=== PATIENT | female | born 1960 | race Caucasian/White ===

== ENCOUNTER → 2024-01-02 10:06 | Outpatient (REF) | payer MEDICARE, OTHER, SELFPAY | LOC: MRI 10:06 | PROVIDERS: ATTENDING PHYSICIAN Student in an Organized Health Care Education/Training Program; FAMILY PHYSICIAN Internal Medicine | DX: G35 Multiple sclerosis (principal) | CPT/HCPCS: 70551; 72141 ==

== ENCOUNTER → 2024-04-09 13:06 | Outpatient (REF) | payer MEDICARE, OTHER, SELFPAY ==
[2024-04-09 16:25] LABS: TSH Reflex To Free T4 2.13 uIU/ml (0.47-4.68)
[2024-04-09 16:44] LABS: Vitamin B12 530 pg/ml (239-931)
[2024-04-10 10:41] LABS: Syphilis/T. pallidum Ab Reflex Negative (Negative)
== END ==
LOC: REG 13:06
PROVIDERS: ATTENDING PHYSICIAN Psychiatry & Neurology Neurology
DX: G35 Multiple sclerosis (principal); D51.0 Vitamin B12 deficiency anemia due to intrinsic factor deficiency
CPT/HCPCS: 36415; 82607; 84443; 84446; 86255; 86430; 86618; 86780

== ENCOUNTER 2024-09-10 12:18 | Emergency (ER) | payer MEDICARE, OTHER, SELFPAY ==
[2024-09-10 12:31] VITALS: BP 107/70
[2024-09-10 13:31] VITALS: BMI 35.3
[2024-09-10 14:00] VITALS: BP 104/62
--- NOTE | 2024-09-10 14:02 | ED.GENMED ---
History of Present Illness
General
Chief Complaint: Chest Pain
Source: patient
Exam Limitations: none
Time Seen by Provider: 09/10/24 13:28
Nursing documentation reviewed up to this point in time: agreed with
History of Present Illness
History of Present Illness:
64-year-old female past medical history of MS, presenting to the emergency department today with concerns of left-sided chest discomfort. She describes it is mainly in the breast. Described as achy no associated symptoms. No nausea vomiting
shortness of breath diaphoresis.
Past History
Past History
ED Past Medical History: Other (Question neurofibromatosis, MS)
Social History
Tobacco: Non-smoker
Alcohol: None
Drug: None
Personal: Single
Living: prison
Employment: Not employed
Family History
Family History: Other (Noncontributory)
Review of Systems
Review of Systems
Allergies reviewed?: Yes
All Other Systems: ROS reviewed and negative except as documented in HPI and ROS
Phy Exam
Physical Exam
Physical Exam:
GENERAL: Alert , in no apparent distress
EYE: pupils equal and reactive
NECK: Supple, no significant adenopathy.
ENT: o/p clr, mmm.
CARDIAC: Regular rate and rhythm .
LUNGS: Clear breath sounds bilaterally, no acute respiratory distress, no wheezes/rales/rhonchi
ABDOMEN: Soft, without focal tenderness, no r/g, no cvat
NEUROLOGICAL: Alert and oriented, no focal neuro deficits
SKIN: Warm and dry, skin intact.
MUSCULOSKELETAL: No edema, well perfused.
PSYCH: Normal and appropriate interaction.
Scores
Heart Score for Chest Pain Patients
STEMI patient?: No
History: Slightly or Non-Suspicious
ECG: Normal
Age: >45 - <65 years
Risk Factors: 1 or 2 Risk Factors
Troponin: </= Normal Limit
Heart Score for Chest Pain Patients: 2
Heart Score Risk: 2.5% MACE over next 6 weeks
Course
Orders/Labs/Results
Orders:
Orders
09/10/24 12:19
ECG [Electrocardiogram (*1)] Urgent
Reason for Study: Chest Pain
EKG- Treatment ONCE
09/10/24 13:53
CR Chest - 2 Views Urgent
Comment:
Reason For Exam: left chest pain
09/10/24 14:15
Complete Blood Count/With Diff Urgent
Comprehensive Metabolic Panel Urgent
Troponin I Urgent
Abnormal Lab Results
09/10/24
14:15
MCHC 32.8 L g/dL
(33.0-37.0)
Abs Immat Gran (auto) 0.1 H 10^3/uL
(0-0.05)
Immature Gran % 1.8 H %
(0-0.5)
09/10/24 14:15
09/10/24 14:15
Vital Signs
Initial and Last Documented VS:
Initial Vital Signs
Temp Pulse Resp BP Pulse Ox
98 F 66 16 107/70 98
09/10/24 12:31 09/10/24 12:31 09/10/24 12:31 09/10/24 12:31 09/10/24 12:31
Last Documented Vital Signs
Temp Pulse Resp BP Pulse Ox
98 F 68 19 106/66 87
09/10/24 12:31 09/10/24 15:17 09/10/24 15:17 09/10/24 16:00 09/10/24 15:52
MDM/Problems Addressed
MDM/Problems Addressed:
64-year-old female presenting to the emergency department today with concerns of left-sided breast discomfort intermittently over the past few weeks. Denies any redness or warmth no systemic symptoms no shortness of breath nausea vomiting or
diaphoresis. Symptoms are reproducible on examination to the left breast but no overlying redness no obvious masses. No evidence of infection. EKG without emergent findings. Patient no distress workup. Normal no emergent findings patient's
symptoms seem to be isolated to the breast itself. Plan for close outpatient follow-up for further assessment of this. Return precautions given.
*Critical Care Note
Total Time (30-74mins, 75-104mins- exclusive of procedures): Not Applicable
ED Attending Note
-
Portions of this chart may have been created with voice recognition software.� Occasional wrong word or��sound alike� substitutions may have occurred due to the inherent limitations of voice recognition software.
Discharge Plan
Departure
Patient Disposition: Home (Routine Discharge)
Date of Disposition: 09/10/24
Time of Disposition: 16:05
Patient with high blood pressure during this ER visit?: No
Condition: Good
Covid-19: Not Applicable
Discharge Problem:
Breast pain
Prescriptions:
No Action
polyethylene glycol 3350 17 gram Powder In Packet
17 g PO BID
Theragen Tablet
1 tab PO DAILY
divalproex 500 mg Tablet,Delayed Release (Dr/Ec)
500 mg PO BID
magnesium hydroxide [Milk of Magnesia] 400 mg/5 mL Suspension
30 ml PO [id number] PRN (Reason: NO BM IN 3 DAYS)
meclizine 25 mg Tablet
50 mg PO DAILY
bisacodyl 10 mg Suppository
10 mg VT DAILYPRN PRN (Reason: IF MOM NOT EFFECTIVE AFTER 24 HRS)
Premarin 0.625 mg/gram Cream
0.58560 mg VAGINAL MOWEFR
Patient Comments:
09/10/24: at bedtime
Fleet Enema 19-7 gram/118 mL Enema
118 ml VT DAILYPRN PRN (Reason: if bisacodyl not effective after 24 hrs)
docusate sodium 100 mg Capsule
100 mg PO TID
olanzapine 15 mg Tablet
15 mg PO HS
diazepam 5 mg Tablet
5 mg PO DAILY
pregabalin 75 mg Capsule
75 mg PO BID
melatonin 5 mg Tablet
5 mg PO HS
Biotene Moisturizing Mouth [place],Non-Aerosol
3 spray MUCOUS MEMBRANE TID
cholecalciferol (vitamin D3) 125 mcg (5,000 unit) Tablet
125 mcg PO DAILY
linaclotide 290 mcg Capsule
290 mcg PO DAILY
glatiramer 40 mg/mL Syringe
40 mg SC TUTHSA
Moisture Barrier Skin ointment
1 appful topical TID
Patient Comments:
09/10/24: APPLY TO SACRUM
sennosides [senna] 8.6 mg Tablet
8.6 mg PO TID
acetaminophen 325 mg Tablet
650 mg PO Q4HPRN PRN (Reason: MILD PAIN)
acetaminophen 325 mg Tablet
650 mg PO Q6HPRN PRN (Reason: TEMP GREATER THAN 100)
tizanidine 2 mg Tablet
2 mg PO [id number] PRN (Reason: MUSCLE SPASM)
carboxymethylcellulose sodium [Refresh Tears] 0.5 % Drops
1 drp BOTH EYES BID
Replens Gel
1 ea VAGINAL HS
atorvastatin 40 mg Tablet
40 mg PO HS
aspirin 81 mg Tablet,Chewable
81 mg PO DAILY
meclizine 25 mg Tablet
25 mg PO BID
omega 4-fsa-adr-fish oil [Fish Oil] 1,000 (120-180) mg Capsule
1 cap PO DAILY
Referrals:
Darlyn Ridley MD [Active] - Follow up in 5-7 days
Cayetano Irizarry MD [Family Provider] -
Activity Restrictions/Additional Instructions:
You came to the emergency department today with concerns of breast discomfort. Please follow closely as an outpatient for further assessment of this. Return for any worsening, new or concerning symptoms.
Interventions
Interventions:
*Risk Screen - Suicide Last Done: 09/10/24 12:31
*Neglect/Abuse Screening Last Done: 09/10/24 12:31
ED- Fall Risk Assessment Last Done: 09/10/24 13:33
*ED COVID-19 Vaccine History Last Done: 09/10/24 13:32
ED- Cardiac Assessment Last Done: 09/10/24 13:33
Discharge Date and Time
Print Language: [place]IZ[place]
[2024-09-10 14:23] LABS: % Basophils 0.7 % (0-2); % Eosinophils 0.7 % (0-6); % Immature Granulocytes 1.8 % (0-0.5); % Lymphocytes 28.7 % (20.5-51.1); % Monocytes 7.5 % (1.7-9.3); % Neutrophils 60.6 % (42.2-75.2); Absolute Basophils 0.1 10^3/uL (0-0.2); Absolute Eosinophils 0.1 10^3/uL (0-0.7); Absolute Immature Granulocytes 0.1 10^3/uL (0-0.05); Absolute Monocytes 0.5 10^3/uL (0.1-0.6); Absolute Neutrophils 4.3 10^3/uL (1.4-6.5); Hematocrit 40.2 % (37.0-47.0); Hemoglobin 13.2 g/dL (12.0-16.0); Mean Corp Hgb Conc. 32.8 g/dL (33.0-37.0); Mean Corpuscular Hgb 27.7 pg (27.0-31.0); Mean Corpuscular Volume 84.5 fL (81.0-99.0); Mean Platelet Volume 9.4 fL (7.4-10.4); Nucleated Red Blood Cells % 0 %; Platelet Count 204 10^3/uL (130-400); Red Blood Cell Count 4.76 10^6/uL (4.20-5.40); Red Cell Dist. Width 14.1 % (11.5-14.5); White Blood Cell Count 7.1 10^3/uL (4.8-10.8)
[2024-09-10 14:35] LABS: ALT (SGPT) 29 U/L (0-35); AST (SGOT) 24 U/L (14-36); Albumin 3.9 g/dl (3.5-5.0); Alkaline Phosphatase 66 U/L (38-126); Blood Urea Nitrogen 10 mg/dl (7-17); Calcium 9.3 mg/dl (8.4-10.2); Carbon Dioxide 28 mmol/L (22-30); Chloride 104 mmol/L (98-107); Estimated Creatinine Clearance 90 ml/min; Glucose 84 mg/dl (70-99); Potassium 4.3 mmol/L (3.5-5.1); Sodium 140 mmol/L (135-145); Total Bilirubin 0.7 mg/dl (0.2-1.3); Total Protein 6.6 g/dl (6.3-8.2); eGFR > 60.00
[2024-09-10 14:46] LABS: Troponin I < 0.012 ng/ml
[2024-09-10 15:17] VITALS: BP 126/106
[2024-09-10 16:00] VITALS: BP 106/66
[2024-09-10 18:47] VITALS: BP 123/78
== END 2024-09-10 18:55 | disposition home or self-care (01) ==
LOC: EMR 12:18
PROVIDERS: Physician Assistant; EMERGENCY PHYSICIAN Student in an Organized Health Care Education/Training Program; FAMILY PHYSICIAN Internal Medicine
DX: N64.4 Mastodynia (principal)
CPT/HCPCS: 99283; 71046; 80053; 84484; 85025; 93005

== ENCOUNTER → 2024-12-12 08:51 | Outpatient (REF) | payer MEDICARE, OTHER, SELFPAY | LOC: PAVMRI 08:51 | PROVIDERS: ATTENDING PHYSICIAN Psychiatry & Neurology Neurology; FAMILY PHYSICIAN Internal Medicine | DX: G35 Multiple sclerosis (principal) | CPT/HCPCS: 70553; 72156; A9575 ==

== ENCOUNTER → 2024-12-19 09:55 | Outpatient (REF) | payer MEDICARE, OTHER, SELFPAY | LOC: PAVMRI 09:55 | PROVIDERS: ATTENDING PHYSICIAN Nurse Practitioner Adult Health; FAMILY PHYSICIAN Internal Medicine | DX: G35 Multiple sclerosis (principal); H81.10 Benign paroxysmal vertigo, unspecified ear; Q85.00 Neurofibromatosis, unspecified | CPT/HCPCS: 72157; A9575 ==